=== PATIENT | female | born 1935 | race Caucasian/White ===

== ENCOUNTER 2017-03-03 19:38 | Emergency (ER) | payer OTHER ==
[~2017-03-03 19:38] MED LIST: ESCITALOPRAM OXA5 MG PO; EXELON1 EAC2 TOP; GUAIFENESIN-COD10 ML PO; IMIPRAMINE25 MG PO; LEVOTHROID SOD0.1 MG PO; LEVOXYL75 MCG PO; MULTI-DAY VITA1 EACH PO; MYRBETRIQ50 M1 PO; OXYBUTYNIN10 MG PO; PREDNISONE10 MG PO; SIMVASTATIN40 M1 PO; VITAMIN B-121000 MC3 PO; VITAMIN B-2100 MG PO; ZANTAC 150MG150 MG PO; ZOFRAN ODT4 M1 SL
--- NOTE | 2017-03-03 20:41 | ED GI/GU/ABDOMINAL COMPLAINT ---
History of Present Illness General Chief Complaint: General Adult Stated Complaint: PER SON, "SHE COULDNT GET OUT OF BED, SICK" Source: patient, family Exam Limitations: poor historian Vital Signs & Intake/Output Vital Signs & Intake/Output Vital Signs Date Time Temp Pulse Resp B/P Pulse O2 O2 Flow FiO2 Ox Delivery Rate 03/03 2226 100.7 88 16 132/70 96 Room Air Room Air 03/03 2038 Room Air 03/03 1951 99.0 92 22 133/76 98 ED Intake and Output 03/04 0000 03/03 1200 Intake Total Output Total Balance Patient 136 lb Weight Allergies Coded Allergies: NO KNOWN ALLERGIES (10/04/12) Reconcile Medications Alprazolam (Unknown Strength) TABLET (Unknown Dose) PO DAILY PRN UNKNOWN ( Reported) Augmentin (Augmentin 500-125 Tablet) 500 MG-125 MG TABLET 1 TAB PO BID UTI Cyanocobalamin (Vitamin B-12) (Unknown Strength) TABLET (Unknown Dose) PO DAILY SUPPLEMENT (Reported) Cyclosporine (Restasis) 0.05 % DROPERETTE 1 GTT OPH BID BOTH EYES (Reported) Diphenoxylate HCl/Atropine (Lomotil 2.5-0.025 MG Tablet) 2.5 MG-0.025 MG TABLET 1 TAB PO TID PRN DIARRHEA (Reported) Levothyroxine Sodium (Levoxyl) 75 MCG TABLET 1 TAB PO DAILY THYROID (Reported ) Mirabegron (Myrbetriq) 50 MG TAB.ER.24H 1 TAB PO DAILY BLADDER (Reported) Multivitamin (Multi-Day Vitamins) 1 EACH TABLET 1 TAB PO DAILY SUPPLEMENT ( Reported) Ondansetron HCl (Zofran) 4 MG TABLET 1 TAB PO Q6-8P PRN NAUSEA Paroxetine HCl (Paxil) 10 MG TABLET 1.5 TAB PO DAILY ANXIETY/DEPRESSION ( Reported) Riboflavin (Vitamin B-2) (Unknown Strength) TABLET (Unknown Dose) PO DAILY SUPPLEMENT (Reported) Rivastigmine (Exelon) 13.3 MG/24 HOUR PATCH.TD24 1 PAT TOP DAILY MEMORY ( Reported) Simvastatin (Simvastatin*) 40 MG TABLET 1 TAB PO QPM CHOLESTEROL (Reported) Triage Note: PER PT FEELING WEAK AND ILL TODAY , UNABLE TO GET OUT OF BED, PT VAGUE ?DIARRHEA TODAY AND ?NAUSEA. PT REPORTS BEING PLACED ON NEW MED TODAY FOR BLADDER INFECTION Triage Nurses Notes Reviewed? yes ? N Is pt currently ? No Onset: Gradual Duration: better Timing: recent history Severity Numbers: 5 Location: suprapubic Radiation: no radiation Activities at Onset: none HPI: Patient is a 82-year-old female with a past medical history of urinary incontinence, IBS, hypothyroidism, hyperlipidemia, anxiety, is a poor historian however he patient comes in with son stating that she has chronic diarrhea which Dr. Gamez did prescribe her her last week Lomotil and when she states that her urologist Dr. javier called her on Friday for concerns of urinary tract infection which she began an antibiotic patient was complaining of abdominal pain that day however the following day she discontinue the antibiotic and the abdominal pain had resolved however patient still is having loose watery diarrhea production with no blood no melena noted and today patient is having nausea and is unable tolerate anything by mouth. Patient does also complain of shortness of breath at night 2 days however she is not complaining at this time a fever chills chest pain or pain jaw pain abdominal pain back pain. Last colonoscopy was07/31/[address] Gamez evaluated and noted diminutive polyp and diverticulosis (SYMONE REYEZ) Past History Travel History Traveled to [place] past 21 day No Medical History Any Pertinent Medical History? 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 No (SYMONE REYEZ) Review of Systems Review of Systems Constitutional: Reports: see HPI. Denies: fever. EENTM: Reports: no symptoms. Respiratory: Reports: see HPI, short of breath. Cardiovascular: Reports: no symptoms. GI: Reports: see HPI, abdominal pain. Genitourinary: Reports: see HPI. Musculoskeletal: Reports: no symptoms. Skin: Reports: no symptoms. Neurological/Psychological: Reports: no symptoms. Hematologic/Endocrine: Reports: no symptoms. Immunologic/Allergic: Reports: no symptoms. All Other Systems: Reviewed and Negative (SYMONE REYEZ) Physical Exam Physical Exam General Appearance: well developed/nourished, no apparent distress, alert Gastrointestinal: normal bowel sounds, soft, non-tender Comments: Well-developed well-nourished person in no acute distress HEENT: Normal EENT exam, extraocular motion intact, no nystagmus. Pupils equally round and reactive to light and accommodation. Nose is atraumatic. External auditory canal and Tympanic membranes clear. Pharynx normal. No swelling or edema. Neck: Supple, no lymphadenopathy, normal range of motion without pain or tenderness Back: Nontender, no CVA tenderness. Cardiovascular: Regular rate and rhythms no murmurs rubs or gallops, normal JVP Respiratory: Chest nontender. No respiratory distress.breath sounds clear to auscultation bilaterally Abdomen: Soft, nontender nondistended, no appreciable organomegaly. Normal bowel sounds. No ascites Extremity: No edema, no calf tenderness to palpation, normal and equal pulses. Neuro: Alert oriented x3, motor sensory normal, Skin: No appreciable rash on exposed skin, skin is warm and dry. Psych: Mood and affect is normal, memory and judgment is normal. Core Measures ACS in differential dx? No Severe Sepsis Present: No Septic Shock Present: No (DAYA MELARA,SYMONE) Progress Differential Diagnosis: AAA, AMI, appendicitis, biliary colic, bowel obstruction , colon cancer, cholecystitis, diverticulitis, ectopic , endometritis, esophageal varices, gastritis, hepatitis, hernia, hemorrhoids, ischemic bowel, inflamm bowel dis, intrauterine , kidney stone, Jacqui-Tobi tear, ovarian cyst, ovarian torsion, pancreatitis, PID/cervicitis, peptic ulcer, PUD/ GERD, perforated viscous, SBO, threatened AB, UTI/pyelo Plan of Care: Orders Procedure Date/time Status LACTIC ACID 03/038 Active Add-on Test (ER Only) 03/03 2239 Active EKG 03/03 2239 Active TROPONIN LEVEL 03/03 2115 Complete CULTURE,STOOL 03/03 2048 Active C.DIFFICILE 03/03 2048 Active BLOOD CULTURE 03/03 2048 Active THYROID STIMULATING HORMONE 03/03 2048 Complete LACTIC ACID 03/03 2048 Complete FREE T4 03/03 2048 Complete COMPREHENSIVE METABOLIC PANEL 03/03 2048 Complete CBC WITHOUT DIFFERENTIAL 03/03 2048 Complete Laboratory Tests 03/03/172114: Anion Gap 13, Estimated GFR > 60, BUN/Creatinine Ratio 15.6, Glucose 129 H, Lactic Acid 1.3, Calcium 9.9, Total Bilirubin 0.8, AST 45 H, ALT 41, Alkaline Phosphatase 105, Troponin I < 0.01, Total Protein 8.2, Albumin 4.7, Globulin 3.5 , Albumin/Globulin Ratio 1.3, TSH 0.593, Free T4 1.15, CBC w Diff NO MAN DIFF REQ, RBC 4.91, MCV 91.7, MCH 30.9, RDW 13.6, MPV 7.5, Gran % 91.4 H, Lymphocytes % 3.2 L, Monocytes % 5.4, Eosinophils % 0, Basophils % 0 L, Absolute Granulocytes 5.6, Absolute Lymphocytes 0.2 L, Absolute Monocytes 0.3, Absolute Eosinophils 0, Absolute Basophils 0, PUBS MCHC 33.7 03/03/172047: Urine Color Cancelled, Urine Clarity Cancelled, Urine pH Cancelled, Ur Specific Hutchinson Cancelled, Urine Protein Cancelled, Urine Ketones Cancelled, Urine Nitrite Cancelled, Urine Bilirubin Cancelled, Urine Urobilinogen Cancelled, Ur Leukocyte Esterase Cancelled, Ur Microscopic Cancelled, Urine Hemoglobin Cancelled, Urine Glucose Cancelled Microbiology 03/03 2256 STOOL: Clostridium difficile Toxin A & B - RECD 03/03 2256 STOOL: Stool Culture - RECD 03/03 2135 BLOOD: Blood Culture - RECD 03/03 2115 BLOOD: Blood Culture - RECD 03/03 2048 URINE ROUT: Urine Culture - CAN Cancelled: Cancelled via OE: Per MD Decision Patient currently is in no apparent distress and has nontender abdomen. Patient had essentially unremarkable blood test and CT scan. Patient was able tolerate by mouth on discharge. Patient was provided with information of the pulmonary nodule most likely due to incidental finding. Patient was strongly advised to follow up with urology and primary care doctor. Urine culture did show that THE E.COLI was susceptible to Augmentin and patient's symptoms most likely can be adverse reaction to Bactrim. On discharge patient looks well no apparent distress and will comply with discharge instructions and had no questions. Discussed disposition AND PLAN with Dr. Santana who agrees (SYMONE REYEZ) Diagnostic Imaging: Viewed by Me: CT Scan. Radiology Impression: SEE COMMENTS Initial ED EKG: normal axis, NSR, 80 BPM Prior EKG: unchanged Comments: PATIENT: SHADI LR PRESENT AGE: 82 PATIENT ACCOUNT NO: [id number] : 37 LOCATION: [facility] ORDERING PHYSICIAN: SYMONE MELARA SERVICE DATE: 03/03/17 EXAM TYPE: CAT - CT ABD & PELVIS W/O IV CONTRAS; CT CHEST WO IV CONTRAST EXAMINATION: CT CHEST, ABDOMEN AND PELVIS WITHOUT CONTRAST CLINICAL INFORMATION: Abdominal pain and nausea. COMPARISON: Chest x-ray 09/20/2009. TECHNIQUE: Multidetector volumetric CT imaging of the chest, abdomen and pelvis was performed without intravenous contrast. Additional 2-D coronal and sagittal reformatted images and axial 3-D maximum intensity projection MIP images of the chest were generated on the acquisition workstation. DLP: 301.24 mGy-cm. FINDINGS: CHEST: LUNGS/AIRWAYS: Evaluation of the lung parenchyma is notable for a 3 mm subpleural nodule along the periphery of the right middle lobe. No focal airspace consolidation is identified to suggest infection. The central airways are patent, without endobronchial obstructing lesions. HEART/VESSELS: Normal heart size, without pericardial effusion. Scattered atherosclerosis of the thoracic aorta and scattered coronary artery calcifications. Normal caliber of the thoracic aorta and main pulmonary artery. MEDIASTINUM/LYMPHATICS: No significant mediastinal, hilar or axillary adenopathy. The visualized portions of the thyroid gland appear unremarkable. PLEURA: No pleural effusions or pneumothoraces. CHEST WALL: Unremarkable. ABDOMEN AND PELVIS: Limited evaluation of the solid abdominal viscera in the absence of intravenous contrast. LIVER, GALLBLADDER, AND BILIARY TREE: The liver is normal in size, shape, and attenuation. No contour deforming hepatic lesion or biliary ductal dilatation is present. The gallbladder is surgically absent. PANCREAS: Generalized pancreatic atrophy with diffuse fatty infiltration of the pancreas. No peripancreatic inflammatory changes. SPLEEN: Unremarkable. ADRENAL GLANDS: Unremarkable. KIDNEYS AND URETERS: The kidneys are normal in size, shape and contour. No contour deforming renal lesions are identified. No renal or ureteral stones are identified and there is no hydroureteronephrosis of either kidney or renal collecting system. BLADDER: Unremarkable. GASTROINTESTINAL TRACT: Normal anatomic orientation of the stomach relative to the duodenum. Normal caliber of abdominal and pelvic bowel loops, without evidence of obstruction or ileus. No circumferential bowel wall thickening with surrounding inflammatory changes to suggest an underlying infectious or inflammatory enterocolitis. Normal-appearing appendix within the right lower quadrant of the abdomen. Scattered colonic diverticulosis, notably involving the descending and rectosigmoid colon, without secondary signs of acute diverticulitis. No organizing intra-abdominal fluid collections or free intraperitoneal air. ABDOMINAL WALL: Small fat-containing bilateral inguinal hernias. Small fat-containing umbilical hernia. LYMPH NODES: No significant abdominal or pelvic adenopathy. VASCULAR: Scattered atherosclerosis of the abdominal aorta and its branching vessels, without aneurysmal dilatation. Limited evaluation for vascular patency. PELVIC VISCERA: A pessary device is present within the vagina. The patient is status post hysterectomy. OSSEOUS STRUCTURES: No acute osseous abnormality. Moderate multilevel degenerative changes of the imaged lumbar spine with grade 1 anterolisthesis of L4 on L5. No destructive osseous lesions are identified. IMPRESSION: 1. Incidental 3 mm subpleural nodule along the periphery of the right middle lobe. Recommend attention on follow-up imaging per Fleischner Society guidelines, as detailed below. Otherwise, no acute findings within the chest. No focal airspace consolidation to suggest infection. 2. No acute findings within the abdomen or pelvis. Scattered colonic diverticulosis, notably involving the rectosigmoid colon, without secondary signs of acute diverticulitis. Various management parameters for solitary pulmonary nodules are in the literature. According to the Fleischner Society, recommendations for pulmonary nodules are as follows: Nodule size < or = to 4 mm in LOW RISK PATIENTS: No follow up needed. Nodule size < or = to 4 mm in HIGH RISK PATIENTS: Follow up CT at 12 months; if unchanged, no further follow up. (SYMONE REYEZ) Departure Departure Disposition: HOME OR SELF CARE Condition: Stable Clinical Impression Primary Impression: UTI (urinary tract infection) Secondary Impressions: Abdominal pain, Adverse drug reaction, Nausea, Pulmonary nodule Referrals: MASON WALTERS MD (PCP/Family) Additional Instructions: As discussed begin the prescription of Augmentin as directed for the full course. Begin a 24-hour clear liquid and bland diet to rest her bowels. Begin the prescription of Zofran if needed for future nausea. Prescriptions waiting at [facility] pharmacy. Follow-up with your primary care doctor in 2 days and U urologist as directed. If symptoms worsen return to emergency room Departure Forms: Customer Survey General Discharge Information Prescriptions: Current Visit Scripts Augmentin (Augmentin 500-125 Tablet) 1 TAB PO BID #14 TAB Ondansetron HCl (Zofran) 1 TAB PO Q6-8P PRN NAUSEA #15 TAB (SYMONE REYEZ) PA/[employer] Co-Sign Statement Statement: ED Attending supervision documentation- [X] I saw and evaluated the patient. I have also reviewed all the pertinent lab results and diagnostic results. I agree with the findings and the plan of care as documented in the PA's/[employer]ANCE BUSINESS [employer]NER's documentation. [X] I have reviewed the ED Record and agree with the PA's/[employer]ANCE [employer]NER's documentation. [] Additions or exceptions (if any) to the PAs/FINANCE BUSINESS [employer]NER's note and plan are summarized below: [] (KANDIS CHAVEZ,[facility])
[2017-03-03 21:29] LABS: ABSOLUTE BASOPHIL COUNT 0 /CUMM (0.0-0.2); ABSOLUTE EOSINOPHIL COUNT 0 /CUMM (0.0-0.7); ABSOLUTE GRANULOCYTE CT 5.6 /CUMM (1.4-6.5); ABSOLUTE LYMPH COUNT 0.2 /CUMM (1.2-3.4); ABSOLUTE MONOCYTE COUNT 0.3 /CUMM (0.10-0.60); BASOPHIL % 0 % (0.0-2.0); EOSINOPHIL % 0 % (0-5); MEAN CORPUSCULAR HGB 30.9 PG (27.0-31.0); MEAN CORPUSCULAR HGB CONC 33.7 G/DL (33.0-37.0); MEAN CORPUSCULAR VOLUME 91.7 FL (81.0-99.0); MEAN PLATELET VOLUME 7.5 FL (7.4-10.4); PLATELET COUNT 198 /CUMM (130-400); RBC DISTRIBUTION WIDTH 13.6 % (11.5-14.5); RED BLOOD CELL CT 4.91 /CUMM (4.20-5.40); WHITE BLOOD CELL COUNT 6.1 /CUMM (4.8-10.8)
[2017-03-03 21:32] LABS: GRANULOCYTE % 91.4 % (42.2-75.2)
[2017-03-03 22:26] VITALS: BP 132/70
[2017-03-03] MEDS ORDERED: LOMOTIL 2.5-0.1 EACH PO (22:36)
[2017-03-03] MEDS ORDERED: RESTASIS1 EACH OPH (22:37)
[2017-03-03] MEDS ORDERED: PAXIL10 M1 PO (22:38)
[2017-03-03] MEDS ORDERED: ALPRAZOLAM0.5 M4 PO (22:38)
--- NOTE | 2017-03-03 23:18 | CT SCAN REPORT ---
EXAMINATION: CT CHEST, ABDOMEN AND PELVIS WITHOUT CONTRAST CLINICAL INFORMATION: Abdominal pain and nausea. COMPARISON: Chest x-ray 09/20/2009. TECHNIQUE: Multidetector volumetric CT imaging of the chest, abdomen and pelvis was performed without intravenous contrast. Additional 2-D coronal and sagittal reformatted images and axial 3-D maximum intensity projection MIP images of the chest were generated on the acquisition workstation. DLP: 301.24 mGy-cm. FINDINGS: CHEST: LUNGS/AIRWAYS: Evaluation of the lung parenchyma is notable for a 3 mm subpleural nodule along the periphery of the right middle lobe. No focal airspace consolidation is identified to suggest infection. The central airways are patent, without endobronchial obstructing lesions. HEART/VESSELS: Normal heart size, without pericardial effusion. Scattered atherosclerosis of the thoracic aorta and scattered coronary artery calcifications. Normal caliber of the thoracic aorta and main pulmonary artery. MEDIASTINUM/LYMPHATICS: No significant mediastinal, hilar or axillary adenopathy. The visualized portions of the thyroid gland appear unremarkable. PLEURA: No pleural effusions or pneumothoraces. CHEST WALL: Unremarkable. ABDOMEN AND PELVIS: Limited evaluation of the solid abdominal viscera in the absence of intravenous contrast. LIVER, GALLBLADDER, AND BILIARY TREE: The liver is normal in size, shape, and attenuation. No contour deforming hepatic lesion or biliary ductal dilatation is present. The gallbladder is surgically absent. PANCREAS: Generalized pancreatic atrophy with diffuse fatty infiltration of the pancreas. No peripancreatic inflammatory changes. SPLEEN: Unremarkable. ADRENAL GLANDS: Unremarkable. KIDNEYS AND URETERS: The kidneys are normal in size, shape and contour. No contour deforming renal lesions are identified. No renal or ureteral stones are identified and there is no hydroureteronephrosis of either kidney or renal collecting system. BLADDER: Unremarkable. GASTROINTESTINAL TRACT: Normal anatomic orientation of the stomach relative to the duodenum. Normal caliber of abdominal and pelvic bowel loops, without evidence of obstruction or ileus. No circumferential bowel wall thickening with surrounding inflammatory changes to suggest an underlying infectious or inflammatory enterocolitis. Normal-appearing appendix within the right lower quadrant of the abdomen. Scattered colonic diverticulosis, notably involving the descending and rectosigmoid colon, without secondary signs of acute diverticulitis. No organizing intra-abdominal fluid collections or free intraperitoneal air. ABDOMINAL WALL: Small fat-containing bilateral inguinal hernias. Small fat-containing umbilical hernia. LYMPH NODES: No significant abdominal or pelvic adenopathy. VASCULAR: Scattered atherosclerosis of the abdominal aorta and its branching vessels, without aneurysmal dilatation. Limited evaluation for vascular patency. PELVIC VISCERA: A pessary device is present within the vagina. The patient is status post hysterectomy. OSSEOUS STRUCTURES: No acute osseous abnormality. Moderate multilevel degenerative changes of the imaged lumbar spine with grade 1 anterolisthesis of L4 on L5. No destructive osseous lesions are identified. IMPRESSION: 1. Incidental 3 mm subpleural nodule along the periphery of the right middle lobe. Recommend attention on follow-up imaging per Fleischner Society guidelines, as detailed below. Otherwise, no acute findings within the chest. No focal airspace consolidation to suggest infection. 2. No acute findings within the abdomen or pelvis. Scattered colonic diverticulosis, notably involving the rectosigmoid colon, without secondary signs of acute diverticulitis. Various management parameters for solitary pulmonary nodules are in the literature. According to the Fleischner Society, recommendations for pulmonary nodules are as follows: Nodule size < or = to 4 mm in LOW RISK PATIENTS: No follow up needed. Nodule size < or = to 4 mm in HIGH RISK PATIENTS: Follow up CT at 12 months; if unchanged, no further follow up.
[2017-03-03] MEDS ORDERED: AUGMENTIN 500-1 EACH PO (23:20)
[2017-03-03] MEDS ORDERED: ZOFRAN4 M2 PO (23:22)
== END 2017-03-03 23:48 ==
LOC: ERH 19:38
PROVIDERS: Physician Assistant
DX: N39.0 Urinary tract infection, site not specified (principal); R91.1 Solitary pulmonary nodule; T50.995A Adverse effect of other drugs, medicaments and biological substances, initial encounter
CPT/HCPCS: 74176; 87040; 87045; 87086; 93005; 93010; 96361; 96374; J2405

== ENCOUNTER 2017-03-14 18:26 | Emergency (ER) | payer OTHER ==
[~2017-03-14] VITALS: Ht 154.9 cm; Wt 56.7 kg
[~2017-03-14 18:26] MED LIST changes: +ALPRAZOLAM0.5 M4 PO; +AUGMENTIN 500-1 EACH PO; +LOMOTIL 2.5-0.1 EACH PO; +PAXIL10 M1 PO; +RESTASIS1 EACH OPH; +ZOFRAN4 M2 PO
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
[2017-03-14 20:49] VITALS: BP 145/66
--- NOTE | 2017-03-14 20:52 | RADIOLOGY REPORT ---
EXAMINATION: XR LUMBOSACRAL SPINE CLINICAL INFORMATION: Back pain COMPARISON: CT abdomen and pelvis 10/04/2012 TECHNIQUE: AP and lateral views of the lumbosacral spine were obtained. FINDINGS: No fracture or bone destruction. Vertebrae have normal height. There is marked degenerative spondylosis of spine with multilevel disc height narrowing and facet joint arthrosis. There is a grade 1/2 anterolisthesis of L4 and L5 due to the facet joint disease. No spondylolysis. Vascular calcification of the abdominal aorta without aneurysm. Compared to prior exam of 10/04/2012 no change. IMPRESSION: Degenerative disease of lumbar spine. No acute abnormality.
[2017-03-14] MEDS ORDERED: CYCLOBENZAPRINE5 M2 PO (21:36)
== END 2017-03-14 22:10 ==
LOC: ERH 18:26
DX: M54.5 Low back pain (principal)
CPT/HCPCS: 72100; 96372; J1885; J3360

== ENCOUNTER → 2018-02-06 | Day surgery (SDC) | payer OTHER ==
[~2018-02-06] VITALS: Ht 154.9 cm; Wt 61.2 kg
[~2018-02-06] MED LIST changes: +CYCLOBENZAPRINE5 M2 PO; +ENABLEX15 M1 PO; +MULTI-DAY PLUS1 EAC1 PO; -MULTI-DAY VITA1 EACH PO; -RESTASIS1 EACH OPH; +RESTASIS1 EACH OU
--- NOTE | 2018-02-06 14:08 | RADIOLOGY REPORT ---
EXAMINATION: CR ABDOMEN/INTRAOPERATIVE FLUOROSCOPY CLINICAL INDICATION: InterStim insertion in OR. COMPARISON: None TECHNIQUE/FINDINGS: Fluoroscopic equipment was dedicated to the operating room for the performance of an intraoperative procedure. Several (2) spot films were acquired and are archived in PACS. Please refer to operative notes for procedural detail. FLUOROSCOPY TIME: 15.5 seconds. IMPRESSION: Administrative dictation for intraoperative fluoroscopy and image archiving in PACS. Please refer to operative notes for details.
--- NOTE | 2018-02-06 15:51 | Operative Report ---
Operative/Inv Procedure Report Surgery Date: 02/06/18 Name of Procedure: interstim stage 1 and 2, sacral neuromodulation Pre-Operative Diagnosis: frequency and urge incontinence Post-Operative Diagnosis: same Estimated Blood Loss: scant Surgeon/Specialist Physician: Alexandra Sexton MD Anesthesia: local monitored anesthesi Implants: interstim lead and battery Complications: none Condition: stable Operative Indication: frequency and urge incontinence refractory to meds Operative/Procedure Note Note: 83yo female with a history of frequency and urge incontinence. She had a good percutaneous trial and wished to proceed with the implant. She was given the risks, benefits and alternatives of the procedure. All questions were answered. She was consented in the holding area. Literature on the procedure was given. Patient was taken to the operating room and time out was performed. She was placed in the prone position and optimally positioned. IV antibiotics were infused and IV sedation was started. She was prepped and draped in the standard sterile fashion with chloraprep and ioban. The flouroscopy was used throughout the case with AP and lateral views. The anatomy landmarks were marked out. The needle was placed into the presumed S3 foramen. The needle was placed at 11cm superior from the coccyx and 2cm lateral to the marked midline site and found to be in good position. She had excellent sensory in vagina and motor response with excellent bandar and great toe movement. The incision site was dilated and the lead was placed. The leads were checked and again with excellent motor and sensory response. The pocket in the right upper outer quadrant of the buttock was created. The branch billing payroll clerk was used to place the lead into the pocket. The lead was cleansed and placed into the battery. The battery was placed into the pocket and the impedence checked and to be in good working order. The incistion site was closed with 3-0 vicryl interrupted suture followed by 4-0 monocryl then dermabond. Tegaderm was then used to cover the incision sites. The sponge and needle count were correct at the end of the case. The patient tolerated the procedure well. She was transferred to the recovery in stable condtion. Findings: good motor and sensory response Discharge Disposition: Same Day Admissions
== END ==
LOC: STS 02:56
DX: N39.41 Urge incontinence (principal); R35.0 Frequency of micturition; E03.9 Hypothyroidism, unspecified
CPT/HCPCS: 72220; C1767; C1778; C1787; C1894; J0690; J2250

== ENCOUNTER 2018-04-04 12:24 | Emergency (ER) | payer OTHER ==
[~2018-04-04] VITALS: Ht 154.9 cm; Wt 59.0 kg
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
--- NOTE | 2018-04-04 14:35 | RADIOLOGY REPORT ---
EXAMINATION: CR FOREARM, RIGHT CR HAND, RIGHT CLINICAL INFORMATION: Fall. Right elbow and forearm and hand pain. COMPARISON: None TECHNIQUE: AP and lateral views of the right forearm were obtained. 2 views of the right hand were obtained. FINDINGS: Right forearm and right hand: Diffuse osteopenia. No acute fracture of the right forearm or the right and. Prominent negative ulnar variance is seen with prominent degenerative changes at the distal radioulnar joint. Advanced degenerative changes seen at the first carpometacarpal joint with complete loss of the joint space height, spurring and cystic changes seen. Mild degenerative changes are noted at all the interphalangeal joints of the digits and in the intercarpal joints. Mild volar subluxations are noted at the second and third metacarpophalangeal joints. IMPRESSION: 1. No acute fracture of the right forearm or right hand. 2. Negative ulnar variance and degenerative changes in the radiocarpal joint and throughout the hand as discussed above.
--- NOTE | 2018-04-04 14:51 | CT SCAN REPORT ---
EXAMINATION: CT OF THE HEAD WITHOUT CONTRAST CT OF THE CERVICAL SPINE WITHOUT CONTRAST CLINICAL INFORMATION: Right facial and head strike.. COMPARISON: CT scan of the head dated 10/31/2017. MRI scan of the head dated 02/26/2018. CT scan of the cervical spine dated 10/31/2017. MRI scan of the cervical spine dated 03/25/2018.. TECHNIQUE: Contiguous axial imaging was performed from the skullbase to vertex without intravenous administration of contrast. Coronal reformations of the head were obtained. Contiguous axial imaging was then performed from the skull base down to the thoracic inlet. Coronal and sagittal reformations of the cervical spine were obtained. DLP: 1363.67 mGy-cm. FINDINGS: CT scan of the head: There is no evidence of acute intracranial hemorrhage or territorial infarction. No abnormal mass-effect or midline shift is seen. Roper to white matter differentiation is well preserved. No extra-axial fluid collections are identified. The ventricles and sulci are enlarged, consistent with involutional changes. Extensive periventricular ischemic small vessel disease again noted. The osseous structures and soft tissues are normal. The mastoid air cells and visualized portions of the paranasal sinuses are well-aerated. CT scan of the cervical spine: Reversal of the normal cervical lordosis is seen with no evidence of acute fracture or dislocation. Grade 1 anterolisthesis of C7 on T1 and T1 on T2 again seen, unchanged, likely on a degenerative basis. Craniocervical junction and atlantoaxial articulations are intact. Prevertebral soft tissues are normal in thickness. There is advanced degenerative disc disease from C3 down to C6-C7 with partial fusion across the disc spaces, exuberant hypertrophic changes and cystic changes seen. Several posterior disc osteophyte complexes are seen indenting the thecal sac. Uncovertebral spurs and facet arthropathy project into the neural foramina bilaterally at multiple levels. Moderate degenerative changes seen at the anterior atlantoaxial articulation. The included soft tissues of the neck and lung apices are unremarkable. IMPRESSION: CT scan of the head: No acute intracranial pathology. Moderate atrophy and findings of ischemic small vessel disease noted, unchanged. CT scan of the cervical spine: No evidence of cervical spine fracture or acute malalignment. Degenerative anterolistheses in the lower cervical spine/upper thoracic spine again noted, unchanged. Advanced degenerative changes in the mid and lower cervical spine, unchanged.
--- NOTE | 2018-04-04 15:14 | CT SCAN REPORT ---
EXAMINATION: CT MAXILLOFACIAL WITHOUT CONTRAST CLINICAL INFORMATION: Right facial and head strike. COMPARISON: CT head and cervical spine and 10/31/2017. TECHNIQUE: Multidetector helical imaging was performed in the axial plane with generation of coronal and sagittal reformatted images. DLP: 1363.67 mGy-cm FINDINGS: The nasal bones, zygomatic arches, and pterygoid processes are intact. There is no evidence of acute facial fracture. Mild swelling within the left periorbital soft tissues. Globes are symmetric. There is no retrobulbar mass or inflammation. Lamina papyracea and orbital floors are intact. Orbital apices are unremarkable. Paranasal sinuses are well aerated with the exception of trivial mucosal thickening within ethmoid air cells. Major paranasal sinus drainage pathways are patent. The nasal septum deviates to the right. The nasal cavity is otherwise unremarkable. IMPRESSION: Mild swelling of the left periorbital soft tissues. No acute facial fracture.
[2018-04-04 15:37] VITALS: BP 151/66
[2018-05-23] MEDS ORDERED: OMEPRAZOLE40 M1 PO (14:27)
[2018-05-23] MEDS ORDERED: MEMANTINE HCL5 MG PO (14:27)
[2018-05-23] MEDS ORDERED: CALCIUM600 M3 PO (14:28)
[2018-05-23] MEDS ORDERED: VITAMIN D2000 UNIT PO (14:29)
[2018-05-23] MEDS ORDERED: VITAMIN B-122500 MCG PO (14:29)
[2018-07-30] MEDS ORDERED: LIDOCAINE1 EACH TOP (20:01)
[2018-07-30] MEDS ORDERED: CELEBREX200 M1 PO (20:01)
[2018-07-30] MEDS ORDERED: RESTORIL7.5 M1 PO (20:03)
[2018-07-30] MEDS ORDERED: GABAPENTIN100 M2 PO (20:03)
[2018-07-31] MEDS ORDERED: AMBIEN5 M1 PO (15:35)
[2018-07-31] MEDS ORDERED: POLYETHYLENE GL17 GM PO (15:36)
[2018-07-31] MEDS ORDERED: SENNA8.6 M3 PO (15:36)
[2018-07-31] MEDS ORDERED: COLACE100 M1 PO (15:37)
[2018-07-31] MEDS ORDERED: VITAMIN B122500 MC1 PO (15:38)
== END 2018-04-04 15:38 ==
LOC: ERH 12:24
DX: S01.119A Laceration without foreign body of unspecified eyelid and periocular area, initial encounter (principal); S09.90XA Unspecified injury of head, initial encounter; S00.212A Abrasion of left eyelid and periocular area, initial encounter; S00.83XA Contusion of other part of head, initial encounter; M79.601 Pain in right arm; W19.XXXA Unspecified fall, initial encounter; Y92.410 Unspecified street and highway as the place of occurrence of the external cause
CPT/HCPCS: 73090-RT; 73130-RT; 90471; 90714

== ENCOUNTER 2018-04-11 13:29 | Emergency (ER) | payer OTHER ==
[~2018-04-11] VITALS: Ht 154.9 cm; Wt 68.0 kg
[2018-04-11 13:34] VITALS: BP 122/83
--- NOTE | 2018-04-11 13:38 | ED ANIMAL BITE/WOUND CHECK ---
History of Present Illness General Chief Complaint: Suture Removal/Wound Recheck Stated Complaint: HERE FOR SUTURE REMOVAL Source: patient Exam Limitations: no limitations Vital Signs & Intake/Output Vital Signs & Intake/Output Vital Signs Date Time Temp Pulse Resp B/P B/P Pulse O2 O2 Flow FiO2 Mean Ox Delivery Rate 04/11 1334 97.0 98 18 122/83 95 Room Air Room Air Allergies Coded Allergies: No Known Allergies (02/04/18) Reconcile Medications Cyanocobalamin (Vitamin B-12) (Unknown Strength) TABLET (Unknown Dose) PO DAILY SUPPLEMENT (Reported) Cyclosporine (Restasis) 0.05 % DROPERETTE 1 GTT OU BID BOTH EYES (Reported) Darifenacin Hydrobromide (Enablex) 15 MG TAB.ER.24H 1 TAB PO DAILY BLADDER ( Reported) Diphenoxylate HCl/Atropine (Lomotil 2.5-0.025 MG Tablet) 2.5 MG-0.025 MG TABLET 1 TAB PO TID PRN DIARRHEA (Reported) Levothyroxine Sodium (Levoxyl) 75 MCG TABLET 1 TAB PO DAILY THYROID (Reported ) Multivitamin-Min/Iron/FA/Vit K (Multi-Day Plus Minerals Tablet) 18 MG IRON-400 MCG-25 MCG TABLET 1 TAB PO DAILY SUPPLEMENT (Reported) Paroxetine HCl (Paxil) 10 MG TABLET 1 TAB PO DAILY ANXIETY/DEPRESSION ( Reported) Riboflavin (Vitamin B-2) (Unknown Strength) TABLET (Unknown Dose) PO DAILY SUPPLEMENT (Reported) Rivastigmine (Exelon) 13.3 MG/24 HOUR PATCH.TD24 1 PAT TOP DAILY MEMORY ( Reported) Simvastatin (Simvastatin*) 40 MG TABLET 1 TAB PO QPM CHOLESTEROL (Reported) Triage Note: PT TO ED FOR SUTURE REMOVAL TO LEFT EYEBROW AREA. JUVENCIO MELARA IN TO EVAL IN TRIAGE. Triage Nurses Notes Reviewed? yes Onset: Abrupt Duration: week(s): (1), better, continues in ED Timing: single episode today Injury Environment: home Is Injury an Animal Bite? No No Modifying Factors: none LMP (ages 10-50): unknown : No Patient currently breastfeeds: No HPI: 83-year-old female presents for evaluation of suture removal. She was seen here one week ago and elected her left eyebrow area. 3 sutures were placed. Patient to keep the area clean and dry. There's been no redness discharge swelling or pain. No fever. She feels it is healing well. (Juvencio Casiano) Past History Travel History Traveled to [place] past 21 day No Medical History Any Pertinent Medical History? 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 No (Juvencio Casiano) Review of Systems Review of Systems Constitutional: Reports: no symptoms. EENTM: Reports: no symptoms. Respiratory: Reports: no symptoms. Cardiovascular: Reports: no symptoms. GI: Reports: no symptoms. Genitourinary: Reports: no symptoms. Musculoskeletal: Reports: no symptoms. Skin: Reports: see HPI (SUTURES). Neurological/Psychological: Reports: no symptoms. Hematologic/Endocrine: Reports: no symptoms. Immunologic/Allergic: Reports: no symptoms. All Other Systems: Reviewed and Negative (Juvencio Casiano) Physical Exam Physical Exam General Appearance: well developed/nourished, no apparent distress, alert, awake Head: atraumatic, normal appearance Eyes: Bilateral: normal appearance, PERRL, EOMI. Ears, Nose, Throat: hearing grossly normal Neck: normal inspection, supple, full range of motion Respiratory: no respiratory distress Back: normal inspection, normal range of motion Extremities: normal range of motion Neurologic/Psych: no motor/sensory deficits, awake, alert, oriented x 3, normal gait Skin: intact, normal color, warm/dry, THERE IS A 1 CM LINEAR LACERATION LOCATED AT THE LATERAL LEFT PERIORBITAL AREA. iT IS WELL-HEALED. tHERE IS NO ERYTHEMA DISCHARGE. nO DEHENSENCE. nO B[place]Y [place] TENDERNESS CHEST MOTION IS INTACT NO SUBCONJUNCTIVAL HEMATOMA Lymphatic: no anterior cervical sharla (Juvencio Casiano) Progress Differential Diagnosis: CELLULITIS, FOREIGN BODY Plan of Care: The wound is well-healed. Sutures were removed without difficulty. Patient tolerated well. Discussed wound care procedures. Keep the area clean and dry look For signs of infection patient agrees with plan (Juvencio Casiano) Departure Departure Disposition: HOME OR SELF CARE Condition: Stable Clinical Impression Primary Impression: Visit for suture removal Referrals: Elisabet CHAVEZ,Carlos Conner (PCP/Family) Additional Instructions: Keep the area clean and dry [place] for signs of infection like redness swelling discharge or pain. Follow up with YOUr primary care doctor for wound check. Monitor symptoms return with any concerns. Departure Forms: Customer Survey General Discharge Information (Juvencio Casiano) PA/DIAL BRUSHER Co-Sign Statement Statement: ED Attending supervision documentation- [x] I saw and evaluated the patient. I have also reviewed all the pertinent lab results and diagnostic results. I agree with the findings and the plan of care as documented in the PA's/DIAL BRUSHER's documentation. Patient presents for suture removal of a left forehead laceration. Physical examination reveals a well- healed wound with no apparent signs of infection or dehiscence. [] I have reviewed the ED Record and agree with the PA's/DIAL BRUSHER's documentation. [] Additions or exceptions (if any) to the PAs/DIAL BRUSHER's note and plan are summarized below: [] (Poonam CHAVEZ,Landon Posey)
== END 2018-04-11 13:47 ==
LOC: ERH 13:29
DX: Z48.02 Encounter for removal of sutures (principal)

== ENCOUNTER 2018-05-26 02:19 | Inpatient (IN) | payer OTHER ==
[~2018-05-26] VITALS: Ht 157.5 cm; Wt 66.2 kg
[~2018-05-26 02:19] MED LIST changes: +CALCIUM600 M3 PO; +MEMANTINE HCL5 MG PO; +OMEPRAZOLE40 M1 PO; +VITAMIN B-122500 MCG PO; +VITAMIN D2000 UNIT PO
--- NOTE | 2018-05-26 08:11 | Operative Report ---
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 Post-Operative Diagnosis: same Estimated Blood Loss: 150 cc Surgeon/Air Analysis Engineering Technician: Karthik CHAVEZ,Oz Johnson MD Anesthesia: general endotracheal tube Monitors: neruophysiologic monitoring IV Fluids: 1300cc crystalloid Implants: caitlyn Urine Output: cc via lam Drains: passive drainage bag Specimens: none Complications: pinhole right C5 level dural laceration with CSF leak repaired primarily Condition: stable Operative Indication: 83yo with high grade multilevel cervical stenosis and progressive myelopathy now presents for surgical decompression and stabilization Operative/Procedure Note Note: Patient was taken the operating room. After appropriate patient identification and surgical timeout, the patient had neurophysiologic monitoring leads placed and baseline recordings were obtained. She then underwent the smooth induction of general endotracheal anesthesia without incident with the neck in a neutral position. Monitoring was stable. A Lam catheter was sterilely inserted. DVT prophylaxis was utilized throughout the case. Patient was given 1 g of IV vanco and preoperative prophylaxis. With all tubes and lines secured in the blood pressure well controlled, the patient was placed in the [place] 3 point head fixation device was applied and carefully turned to the prone position on gel rolls taking care to ensure that all pressure points were well-padded. The neck was maintained in a neutral to slightly lordotic position and fixed to the table. A lateral cervical xray was obtained and confirmed anatomic alignment. Monitoring was stable with the patient to the prone position. Shoulders were retracted downward with tape. The posterior neck was widely prepped and draped in usual sterile fashion using povidone iodine solution. A vertical midline skin incision was marked from C2- T1 and infiltrated with 10 mL of local anesthetic. Skin incision was made with a 10 blade knife. Dissection was carried down through the subcutaneous tissue with the Bovie the ligamentum nuchae. Ligament was incised in the midline and a subperiosteal dissection of the cervical paravertebral muscles was performed bilaterally with the Bovie exposing underlying spinous processes lamina and facet joints bilaterally. We extended the exposure to the lateral aspect of the lateral masses from C3 to C7 bilaterally and self-retaining retractors were placed beneath the muscle. A [place] 4 elevator was placed in the presumed C4/5 facet joint and a lateral cervical x-ray was obtained and confirmed this to be the correct level. With the levels verified, we proceeded to decorticating the lateral masses and curetting out the facet joints. The drill was used to decoritcate the facet joints with the drill prior to screw insertion. Entry points for the lateral mass screws were selected from C3 to C7 bilaterally, medial to the midpoint of the lateral mass and marked with a marcella bur. Screw holes were then drilled using the Octopus Deploy to a depth of 12 mm and with a 30 lateral and rostral angulation. All holes were palpated with a ball-tipped probe and showed no evidence of cortical breakthrough. A laminectomy of C3, C4, C5, C6, and the rostral half of C7 was performed using combination of the bone scalpel and Kerrison rongeurs. An excellent decompression of the dural sac was completed and monitoring was stable. A tiny pinhole dural laceration was encountered in the right lateral dura at approx C5 level which was repaired with a single 4-0 neurolon with complete cessation of CSF leak. Bone was passed off to the back table and saved for arthrodesis. Hemostasis was obtained with irrigation and flowseal in the lateral epidural gutters. The facet joints of C3 4, C4 5, C5 6, and C6 7 were packed with morcellated autograft packed bilaterally as well as over the dorsal aspect of the lateral masses which were also decorticated. We then placed a 3.5 x 12 mm screws bilaterally from C3 to C7 without complication. 60 mm titanium rods were then gently lordosed and top loaded into the screws from C3 to C7 bilaterally. Locking caps were placed. Screws were then finally tightened with an antitorque device. Meticulous hemostasis was achieved using combination of bipolar and Surgifoam. The dural repair was reinforced with duragen and 4cc of tisseal. Pt was valsava 'd to 30 with no evidence of CSF leak. Neurophysiologic monitoring was noted to be stable following the decompression and placement of the instrumentation. Final xrays were obtained and confirmed excellent position of the instrumentation. The wound was copiously irrigated with sterile saline irrigation. A medium passive drain was placed into the wound and secured to the skin with a 2-0 nylon suture. 500mg of vanco powder was placed over the cut muscle and soft tissue surfaces and then began wound closure. Deep muscle was reapproximated with interrupted 0 Vicryl suture. The ligamentum nuchae was reapproximated with interrupted 0 Vicryl suture and the subcutaneous tissue was irrigated and closed in layers with a 2-0 Vicryl suture. The skin was closed with barb. The wound was cleaned and dried. Bacitracin and a sterile occlusive dressing was placed. Placed in a hard cervical collar, taken out of the [place] and returned to the supine position. She was taken out of the [place], awakened, extubated, and taken to PACU in stable condition. She was noted to be moving all 4 extremities at the completion of the case. All sponge, needle, and instrument counts were correct at the completion of the procedure 3. Neurophysiologic monitoring was stable. Discharge Disposition: PACU
--- NOTE | 2018-05-26 15:45 | Operative Report ---
Operative/Inv Procedure Report Surgery Date: 05/26/18 Name of Procedure: C3 to C7 laminectomy andC3 to C7 posterior lateral fusion c3 through 7 posterior lateral segmental instrumentation using Emmy orifices posterior screws use of autograft, please a Dixon head fixation for reduction of C2 3 subluxation, fluoroscopic guidance Pre-Operative Diagnosis: Cervical spondylotic myelopathy Post-Operative Diagnosis: Same Estimated Blood Loss: 200 Surgeon/Growth Hacker: Oz Angeles MD,Ping Mota Anesthesia: general endotracheal tube Complications: CSF leak Operative/Procedure Note Note: After the successful administration of general endotracheal anesthesia all lines tubes and monitors were placed by anesthesia team the patient positioned in the [place] head fixation prone she was secured to the table fluoroscope was used to get a reduction of the C2 3 spinal listhesis and subluxation and to ensure good anatomic positioning. Care was closed with Her space prepped and draped using standard fashion 10 mL of lidocaine with epinephrine was infiltrated in subcutaneous tissues were 10 was used to incise the skin was deepened Bovie cautery and the cervical fascia was divided and a subperiosteal dissection was carried out exposing spinous process lamina and facet complexes of C3 4 567. We inserted soft tissue retractors laterally we confirmed level with the fluoroscope, after levels confirmed we used a Leksell rongeur to remove the spinous process inferiorly of C3 4 5 6 and superior aspect of C7. We then used a high-speed drill to make private pilot holes admitted positioned lateral masses and deepened it with a 12 mm drill. All holes were palpated with circumferential bone. We then used the bone scalpel to make cuts in the junction of the lamina and the lateral masses at C3 4 5 6 and 7 the laminas were elevated removed after a removing the lamina on the right-hand side at C3 6 shows a small dural defect from a bony shard discectomy with a cottonoid. We then performed a foraminotomy on the right-hand side at C3 5 60 to expose lateral border thecal sac to put one stitch in the dura and closed primarily. There was no further CSF egress the thecal sac was pulsatile, motors and sensors were stable. We then placed 12 mm screws at C3 4 567. 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 Fluoroscopic shots with a hard excellent position. The patient was Valsalva and there was no further evidence of CSF leak bleeding was controlled by electrocautery FloSeal and bone wax. There separate stab incision a JC drain was attached to a bile bag. The wound was dusted with 500 g vancomycin powder and closed in layers using 0 Vicryls for the fascia and muscle 2-0 Vicryl for deep dermis and skin was closed with barb dry sterile dressing was applied. At the end the case all needle counts sponge and instrument correct the patient taken to recovery room in stable condition.
--- NOTE | 2018-05-26 17:37 | Admission Core Measures ---
Acute Coronary Syndrome (CM) ACS Core Measures Acute Coronary Syndrome Diagnosis No Congestive Heart Failure (NEW) CHF Core Measures Congestive Heart Failure Diagnosis No Cerebrovascular Accident CVA Core Measures CVA/TIA Diagnosis No Venous Thromboembolism VTE Core Ilya (View Protocol) VTE Risk Factors Age>40 No Mechanical VTE Prophylaxis d/t N/A MechProphylax Ordered No VTE Pharm Prophylaxis d/t NA PharmProphylax ordered Problem List As ranked by this Provider includes Assessment & Plan 1. Cervical stenosis of spine HOME MEDS Home Med List Calcium (Elemental-Fr Calcarb) (Calcium) 600 MG CALCIUM (1,500 MG) TABLET 2 TAB PO QPM SUPPLEMENT (Reported) Cholecalciferol (Vitamin D3) (Vitamin D) 2,000 UNIT CAPSULE 1 CAP PO DAILY SUPPLEMENT (Reported) Cyanocobalamin (Vitamin B-12) (Vitamin B-12) 2,500 MCG TAB.SUBL 1 TAB PO DAILY SUPPLEMENT (Reported) Cyclosporine (Restasis) 0.05 % DROPERETTE 1 GTT OU BID BOTH EYES (Reported) Darifenacin Hydrobromide (Enablex) 15 MG TAB.ER.24H 1 TAB PO DAILY BLADDER ( Reported) Levothyroxine Sodium (Levoxyl) 75 MCG TABLET 1 TAB PO DAILY THYROID (Reported ) Memantine HCl 5 MG TABLET 1 TAB PO DAILY UNKNOWN (Reported) Multivitamin-Min/Iron/FA/Vit K (Multi-Day Plus Minerals Tablet) 18 MG IRON-400 MCG-25 MCG TABLET 1 TAB PO DAILY SUPPLEMENT (Reported) Omeprazole 40 MG CAPSULE.DR 1 CAP PO DAILY GI (Reported) Paroxetine HCl (Paxil) 10 MG TABLET 2 TAB PO DAILY ANXIETY/DEPRESSION ( Reported) Riboflavin (Vitamin B-2) (Unknown Strength) TABLET (Unknown Dose) PO DAILY SUPPLEMENT (Reported) Rivastigmine (Exelon) 13.3 MG/24 HOUR PATCH.TD24 1 PAT TOP DAILY MEMORY ( Reported) Simvastatin (Simvastatin*) 40 MG TABLET 1 TAB PO QPM CHOLESTEROL (Reported)
--- NOTE | 2018-05-26 17:43 | PN- Neurosurgical ---
Subjective Subjective: Postop check: Patient mildly drowsy but arousable. States there is mild pain, and is well- controlled with medication. No other complaints. Objective Vital Signs and I&Os Intake & Output 05/26 0805/26 0000 05/25 1600 05/25 0805/25 0000 Intake Total Output Total Balance Patient 134 lb Weight Vital signs stable, afebrile Drain output: Minimal Physical Exam: Well-developed well-nourished no apparent distress. HEENT: Atraumatic, extraocular motion intact Neck: Supple, no lymphadenopathy, trachea is midline Posterior dressing clean dry and intact Drain in place, minimal output of serosanguineous drainage Cervical collar in place Respiratory: No respiratory distress Extremities: No edema, no calf pain Neuro: Alert and oriented x3 Neuro exam is limited due to drowsiness; bilateral upper extremities and lower extremities are neurovascularly intact with sensation and motor grossly intact Psych: Mood affect normal, normal memory normal judgment. Skin: Warm and dry, no rash on exposed skin Assessment/Plan Assessment/Plan Postop day #0 status post C3-7 laminectomy, lateral mass fusion with caitlyn instrumentation, autograft, intraop fluoroscopy Secondary to C3-C7 stenosis with myelopathy Perioperative antibiotics. Continue postop surgical drain, continue antibiotics until drain is removed Pain medication as needed. Out of bed with assist, collar to remain in place IV fluids Regular diet ALPS for DVT prophylaxis neuro checks Regular home meds Dressing change postop day 2 Core Measures Venous Thromboembolism VTE Risk Factors Age>40 No Mechanical VTE Prophylaxis d/t N/A MechProphylax Ordered No VTE Pharm Prophylaxis d/t NA PharmProphylax ordered
[2018-05-26 18:00] VITALS: BP 126/80
[2018-05-26 20:54] VITALS: BP 132/74
[2018-05-26 22:00] VITALS: BP 130/72
[2018-05-27 00:10] VITALS: BP 132/70
[2018-05-27 04:06] VITALS: BP 134/70
--- NOTE | 2018-05-27 07:51 | PN- Neurosurgical ---
Subjective Subjective: Pt doing well this am. reports only discomfort in distal left third finger since OR, denies referred pain in UE, LE or any new neurologic concerns. Objective Vital Signs and I&Os Vital Signs Date Time Temp Pulse Resp B/P B/P Pulse O2 O2 Flow FiO2 Mean Ox Delivery Rate 05/27 0406 98.2 78 20 134/70 94 Nasal 2.0L Cannula 05/27 0010 98.4 82 20 132/70 93 Nasal 2.0L Cannula 05/27 0000 94 Nasal 1.0L Cannula 05/27 0000 94 Nasal 1.0L Cannula 05/26 2200 93 Room Air 05/26 2200 98.2 90 16 130/72 94 Nasal 1.0L Cannula 05/26 2145 Room Air 05/26 2054 97.6 86 17 132/74 92 Room Air 05/26 1843 19 94 Room Air 05/26 1843 18 93 Nasal 1.0L Cannula 05/26 1800 97.7 79 18 126/80 94 Nasal 3.0L Cannula Intake & Output 05/27 0800 05/27 0000 05/26 1600 05/26 0800 05/26 0000 05/25 1600 Intake Total 735 850 Output Total 375 350 Balance 360 500 Intake, IV 660 350 Intake, Oral 75 500 Output, 75 Drainage Output, Urine 300 350 Patient 66.224 kg 66.224 kg 60.781 kg Weight Weight Bed scale Measurement Method Physical Exam: AF, VSS concerned about the angle of the TV this am, denies signif pain drain 75cc over night serosanguinous incision with drainage, reinforced last evening with min additional seeping neuro exam is stable with good strength all 4 extrem, pain to palp distal phalyx left 3rd digit without swelling, erythema or focal lesion lam in place Current Medications: Current Medications Sig/Lake Start time Last Medication Dose Route Stop Time Status Admin Acetaminophen 650 MG Q4P PRN 05/26 190 AC PO Atorvastatin Calcium 20 MG 1700 05/27 170 AC PO Bisacodyl 10 MG DAILY NEEDED PRN 05/26 1900 AC CO Calcium/Vitamin D 1 TAB DAILY 05/27 09 AC PO Cefazolin Sodium 2 GM Q8H 05/26 2000 AC 05/27 N/A 1 UNIT IV 05/29 1229 0401 Cefazolin Sodium 2,000 MG ONCE 05/26 0000 DC IV 05/26 2359 Diazepam 5 MG Q8P PRN 05/26 1900 AC PO Docusate Sodium 100 MG BID 05/26 2100 AC 05/26 PO 2015 Fentanyl Citrate 250 MCG .STK-MED ONE 05/26 1241 DC IM 05/26 1242 Heparin Sodium 5,000 UNIT Q8 05/27 0600 AC 05/27 (Porcine) SC 0549 Hydromorphone HCl 2 MG .STK-MED ONE 05/26 1719 DC IM 05/26 1720 Hydromorphone HCl 2 MG .STK-MED ONE 05/26 1632 DC IM 05/26 1633 Hydromorphone HCl 2 MG .STK-MED ONE 05/26 1618 DC IM 05/26 1619 Levothyroxine Sodium 0.075 MG DAILY AC 05/27 0700 AC 05/27 PO 0548 Memantine 5 MG DAILY 05/27 0900 AC PO Omeprazole 40 MG DAILY AC 05/27 0700 AC 05/27 PO 0548 Ondansetron HCl 4 MG Q6P PRN 05/26 1900 AC IV Oxybutynin Chloride 2.5 MG BID 05/26 2100 AC 05/26 PO 2015 Oxycodone/ 1 TAB Q4-6 PRN PRN 05/26 2030 AC 05/27 Acetaminophen PO 0549 Oxycodone/ 2 TAB Q4P PRN 05/26 1900 AC Acetaminophen PO Paroxetine HCl 20 MG DAILY 05/27 0900 AC PO Remifentanil 2 MG .STK-MED ONE 05/26 1241 DC IV 05/26 1242 Rivastigmine 13.3 MG DAILY 05/27 0900 AC TOP Sodium Chloride 1,000 ML .[id number] 05/26 190 AC 05/27 IV 05/27 195 0553 Trimethobenzamide HCl 200 MG Q6P PRN 05/26 1900 AC IM Assessment/Plan Assessment/Plan Pt POD1 s/p C3-7 lami and fusion and doing well. Neuro stable. Plan: -PT, OOB, mobilize -change dressing - sterile occlusive -cont passive drain, abx -ADAT, HLIV when taking po -dc lam this am -encourage IS use, poor VC less than 1 L this am -cont DVT prophylaxis Core Measures Venous Thromboembolism VTE Risk Factors Age>40 No Mechanical VTE Prophylaxis d/t N/A MechProphylax Ordered No VTE Pharm Prophylaxis d/t NA PharmProphylax ordered Attending MD Review Statement Attending Statement Attending MD Statement: examined this patient, discuss w/resident/PA/WHIZZER, discussed w/nursing
[2018-05-27 08:00] VITALS: BP 130/70
--- NOTE | 2018-05-27 10:08 | RADIOLOGY REPORT ---
EXAMINATION: XR CERVICAL SPINE CLINICAL INFORMATION: C3-C7 laminectomy. COMPARISON: Radiographs of cervical spine, 05/07/2018 TECHNIQUE: Intraoperative fluoroscopic imaging of cervical spine in lateral projection. NUMBER OF SAVED IMAGES: 1. FLUOROSCOPY TIME: 3.5 seconds. DOSE: 20.17 mrad FINDINGS: Patient is intubated within the operating room. 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 The single lateral intraoperative view of cervical spine shows mild degenerative anterolisthesis at C2-C3. Patient has undergone multilevel laminectomy (C3-C7). There are soft tissue retractors in place. Posterior spinal fusion hardware has been applied to C3-C7. IMPRESSION: Intraoperative fluoroscopic imaging was performed at time of multilevel laminectomy and spinal fusion.
[2018-05-27 16:19] VITALS: BP 130/68
[2018-05-27 21:12] VITALS: BP 132/68
[2018-05-28 01:19] VITALS: BP 130/60
[2018-05-28 04:26] VITALS: BP 130/60
[2018-05-28 07:19] VITALS: BP 120/60
--- NOTE | 2018-05-28 07:52 | PN- Neurosurgical ---
Subjective Subjective: Pt reports mild to mod incisional neck pain, persistent left mid digit distal phalynx pain Objective Vital Signs and I&Os Vital Signs Date Time Temp Pulse Resp B/P B/P Pulse O2 O2 Flow FiO2 Mean Ox Delivery Rate 05/28 0719 98.4 78 17 120/60 93 05/28 0426 100.1 74 17 130/60 96 05/28 0000 96 Room Air 05/27 2200 92 Room Air 05/27 2112 98.4 78 17 132/68 92 Room Air 05/27 1619 98.0 69 17 130/68 97 Room Air 05/27 1531 Room Air Room Air 05/27 1400 94 Room Air 05/27 1135 19 95 Room Air 05/27 0800 98.5 69 18 130/70 97 Nasal 2.0L Cannula Intake & Output 05/28 0800 05/28 0000 05/27 1600 05/27 0800 05/27 0000 05/26 1600 Intake Total 250 340 735 850 Output Total 400 375 350 Balance 250 -60 360 500 Intake, IV 100 660 350 Intake, Oral 250 240 75 500 Output, 100 75 Drainage Output, Urine 300 300 350 Patient 66.224 kg 66.224 kg Weight Weight Bed scale Measurement Method Physical Exam: Pt awake and alert, conversive, appropriate AF, VSS 93-96% RA sat incision c,d,i neuro exam is stable all 4 extrem TTP distal left long finger, no swelling, no erythema incontinent of urine - pt reports same preop was oob with PT yest to chair using IS lynn po drain with 100cc last recorded serosanguinous Current Medications: Current Medications Sig/Lake Start time Last Medication Dose Route Stop Time Status Admin Acetaminophen 650 MG Q4P PRN 05/26 1900 AC PO Atorvastatin Calcium 20 MG 1700 05/27 1700 AC 05/27 PO 1708 Bisacodyl 10 MG DAILY NEEDED PRN 05/26 1900 AC NE Calcium/Vitamin D 1 TAB DAILY 05/27 09 AC 05/27 PO 0801 Cefazolin Sodium 2 GM Q8H 05/26 N/A 1 UNIT IV 05/29 1229 0426 Diazepam 5 MG Q8P PRN 05/26 1900 AC PO Docusate Sodium 100 MG BID 05/26 2100 AC 05/27 PO 2006 Heparin Sodium 5,000 UNIT Q8 05/27 06 AC 05/28 (Porcine) SC 0544 Levothyroxine Sodium 0.075 MG DAILY AC 05/27 0700 AC 05/28 PO 0544 Memantine 5 MG DAILY 05/27 0900 AC 05/27 PO 0801 Omeprazole 40 MG DAILY AC 05/27 0700 AC 05/28 PO 0544 Ondansetron HCl 4 MG Q6P PRN 05/26 1900 AC IV Oxybutynin Chloride 2.5 MG BID 05/26 2100 AC 05/27 PO 2006 Oxycodone/ 1 TAB Q4-6 PRN PRN 05/26 2030 AC 05/27 Acetaminophen PO 0549 Oxycodone/ 2 TAB Q4P PRN 05/26 1900 AC 05/28 Acetaminophen PO 0553 Paroxetine HCl 20 MG DAILY 05/27 0900 AC 05/27 PO 0801 Rivastigmine 13.3 MG DAILY 05/27 0900 AC 05/27 TOP 0802 Trimethobenzamide HCl 200 MG Q6P PRN 05/26 1900 AC IM Assessment/Plan Assessment/Plan Pt POD2 s/p C3-7 lami and fusion and doing well. Neuro intact,. Plan: -oob with PT today -xray left mid finger - r/o fx -cont drain until less than 20-30cc per shift, abx until drain out -dc planning for STR - likely tomorrow -undergarment for incontinence- pt reports this is not new issue and uses at home Core Measures Venous Thromboembolism VTE Risk Factors Age>40 No Mechanical VTE Prophylaxis d/t N/A MechProphylax Ordered No VTE Pharm Prophylaxis d/t NA PharmProphylax ordered Attending MD Review Statement Attending Statement Attending MD Statement: examined this patient, discuss w/resident/PA/FORM BUIL[employer] HELPER, discussed w/nursing
[2018-05-28 09:51] VITALS: BP 138/70
--- NOTE | 2018-05-28 10:02 | Patient Discharge Instructions ---
Discharge Instructions General Discharge Information You were seen/treated for: CERVICAL SPINAL STENOSIS WITH MYELOPATHY You had these procedures: INSTRUMENTED FUSION C3-7 Watch for these problems: Increasing pain despite the use of pain medication Increasing redness, warmth or swelling Drainage of any type from incision Inability to bear weight or weakness Persistent nausea and vomiting Fever greater than 101.5 degrees Call Surgeon to remove: Hany Other wound care: Please keep wound clean and dry. No ointments or lotions of any type on or near incision. Your dressing will be changed by your nurse on the second day after your surgery. Daily dry dressing changes are recommended each day thereafter. Do not soak your wound- no tub baths/swimming. You may shower 48hr after surgery. Diet Continue normal diet: Yes Recommended Diet: Regular Activity Full Activity/No Limits: No Activity Self Limited: Yes Additional ACTIVITY Info: please wear cervical collar at all times, remove for cleaning and bathing with assistance Acute Coronary Syndrome Inclusion Criteria At DC or during hospital stay patient has or had the following: ACS DIAGNOSIS No Discharge Core Measures Meds if any: Prescribed or Continued at Discharge FREDDY/ARB if EF <40% No Aspirin No Meds if any: NOT Prescribed or Continued at Discharge Congestive Heart Failure Inclusion Criteria At DC or during hospital stay patient has or had the following: CHF DIAGNOSIS No Discharge Core Measures Meds if any: Prescribed or Continued at Discharge Meds if any: NOT Prescribed or Continued at Discharge Cerebrovascular accident Inclusion Criteria At DC or during hospital stay patient has or had the following: CVA/TIA Diagnosis No Discharge Core Measures Meds if any: Prescribed or Continued at Discharge Meds if any: NOT Prescribed or Continued at Discharge Venous thromboembolism Inclusion Criteria VTE Diagnosis No VTE Type NONE VTE Confirmed by (Test) NONE Discharge Core Measures - Per Current guidelines, there needs to be overlap - treatment for the first 5 days of Warfarin therapy. - If discharged on Warfarin prior to 5 days of - overlap therapy, the patient will need to be - assessed for post discharge needs including - *Post discharge parental anticoagulation - *Warfarin and/or parental anticoagulation education - *Follow up date to check INR post discharge At least 5 days overlap therapy as Inpatient No Meds if any: Prescribed or Continued at Discharge Note: Overlap Therapy is Warfarin and Anticoagulant Meds if any: NOT Prescribed or Continued at Discharge
--- NOTE | 2018-05-28 13:03 | RADIOLOGY REPORT ---
EXAMINATION: XR FINGER, LEFT CLINICAL INFORMATION: Pain at distal interphalangeal joint. Evaluate for occult injury. COMPARISON: None TECHNIQUE: 3 views of the left middle finger. FINDINGS: Incidentally noted is 0.5 cm of ulna negative variance. There appears to be slightly increased scalloping of the sigmoid notch at the distal radioulnar joint, which may be seen in patients with ulnar impingement. 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 Mild osteoarthritis is observed at several metacarpophalangeal and interphalangeal joints, including the third DIP joint. Also, there is [id number] osteoarthritis of the incompletely evaluated thumb interphalangeal joint. No acute findings within the middle finger. Bones of the middle finger have normal alignment. No acute fracture or subluxation. No osseous erosion or periostitis. IMPRESSION: 1. 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 2. Within the hand and wrist, osteoarthritis is worst at the first carpometacarpal joint. 3. Within the distal forearm, incidentally noted is 0.5 cm of ulna negative variance.
[2018-05-28 14:05] VITALS: BP 130/60
--- NOTE | 2018-05-28 15:23 | Surg Short-stay <48hrs Dis Sum ---
Visit Information Visit Dates Admission Date: 05/26/18 Discharge Date: 05/28/2018 Surgical Short Stay DC Summary Admission Diagnosis: CERVICAL STENOSIS/MYELOPATHY Final Diagnosis: SAME Procedure(s): c3-c7 LAMINECTOMY, FUSION Summary/Significant Findings: Patient presented to [facility] on May 26, 2018 for an elective C3 through C7 laminectomy with Dr. Angeles. During the procedure there was a small pinhole dural tear for which she left a drain in place. Patient tolerated procedure well. Postoperatively her pain was well managed with oral pain medication, tolerated a regular diet, voided, drain output was minimal and the drain was pulled. Dressing was changed and there were no signs of infection. Patient worked with physical therapy and was cleared for discharge to rehab Condition at Discharge: Good Discharge Disposition: SNF Discharge instructions provided to patient/family: Yes Post discharge follow-up plan: Patient is to follow-up with Dr. Mejia in 10 days.
[2018-05-28 15:50] VITALS: BP 130/60
== END 2018-05-28 16:30 | DRG 472 ==
LOC: 2NB 02:19 → SDA 02:19 → ENRESERV 16:46 → 2NB 17:06 → ENTRNSPT 17:18 → EDTRNSPTSTS 17:39 → EDTRNSPT 17:39 → CMPTRNSPT 17:50 → 2NB 05-28 16:30
PROC: 0PB30ZZ Excision of Cervical Vertebra, Open Approach (ICD-10-PCS; principal; 2018-05-26)
PROC: 0RG2071 Fusion of 2 or more Cervical Vertebral Joints with Autologous Tissue Substitute, Posterior Approach, Posterior Column, Open Approach (ICD-10-PCS; principal; 2018-05-26)
PROC: 00QT0ZZ Repair Spinal Meninges, Open Approach (ICD-10-PCS; principal; 2018-05-26)
DX: M48.02 Spinal stenosis, cervical region (principal); G97.41 Accidental puncture or laceration of dura during a procedure; Y83.9 Surgical procedure, unspecified as the cause of abnormal reaction of the patient, or of later complication, without mention of misadventure at the time of the procedure; Y82.9 Unspecified medical devices associated with adverse incidents; E03.9 Hypothyroidism, unspecified; E78.5 Hyperlipidemia, unspecified; Z96.652 Presence of left artificial knee joint
CPT/HCPCS: 2NBSP; 36415; 72040; 73140-LT; 87086; 97110-GO; 97116-GO; 97161-GP; 97530-GO; C1713; EXP; J0690; J1644; J3250; J3370; J3490